=== PATIENT | male | born 1990 | race Caucasian/White ===

== ENCOUNTER 2016-07-25 13:14 | Emergency (ER) | payer OTHER | END 2016-07-25 14:48 | disposition home or self-care (01) | LOC: ED 13:14 | DX: L73.2 Hidradenitis suppurativa (principal); L03.116 Cellulitis of left lower limb; B95.62 Methicillin resistant Staphylococcus aureus infection as the cause of diseases classified elsewhere; F17.210 Nicotine dependence, cigarettes, uncomplicated ==